=== PATIENT | female | born 1960 | race Caucasian/White ===

== ENCOUNTER 2016-10-18 08:41 | Emergency (ER) | payer MEDICARE, MEDICAID ==
[~2016-10-18 08:41] MED LIST: ANTIFUNGAL15 GM TOP; AYR SALINE NASA22 ML NAS; BENADRYL25 MG PO; BENTYL10 MG PO; CLARITIN10 MG PO; DULCOLAX10 MG RECTAL; EFFEXOR XR150 MG PO; FLEET ENEMA133 M1 RECTAL; GLUCAGEN1 MG/1 ML SUBCUT; IMODIUM2 MG PO; KLOR-CON M2020 MEQ PO; LANTUS100 UNIT/1 SUBCUT; LIORESAL10 MG PO; LORTAB 5-325 M1 EACH PO; MILK OF MAGNESI30 ML PO; MULTIVITAMINS1 EAC1 PO; PRILOSEC20 MG PO; TYLENOL325 MG PO; VITAMIN C500 M1 PO; VITAMIN D-32000 UNIT PO
== END 2016-10-18 12:35 | disposition short-term general hospital (02) ==
LOC: ER 08:41
DX: N39.0 Urinary tract infection, site not specified (principal); N13.2 Hydronephrosis with renal and ureteral calculous obstruction; E11.9 Type 2 diabetes mellitus without complications; Z87.442 Personal history of urinary calculi; Z86.73 Personal history of transient ischemic attack (TIA), and cerebral infarction without residual deficits; Z90.49 Acquired absence of other specified parts of digestive tract; Z88.0 Allergy status to penicillin
CPT/HCPCS: J2185; J2270; J2405

== ENCOUNTER 2016-11-11 17:13 | Emergency (ER) | payer MEDICARE, MEDICAID | END 2016-11-11 22:00 | disposition short-term general hospital (02) | LOC: ER 17:13 | DX: E86.0 Dehydration (principal); R41.0 Disorientation, unspecified; N28.9 Disorder of kidney and ureter, unspecified; I10 Essential (primary) hypertension; F32.9 Major depressive disorder, single episode, unspecified; E11.9 Type 2 diabetes mellitus without complications; I87.2 Venous insufficiency (chronic) (peripheral); Z85.51 Personal history of malignant neoplasm of bladder; F17.200 Nicotine dependence, unspecified, uncomplicated; Z86.73 Personal history of transient ischemic attack (TIA), and cerebral infarction without residual deficits; Z90.49 Acquired absence of other specified parts of digestive tract; Z98.890 Other specified postprocedural states ==

== ENCOUNTER 2016-11-19 16:09 | Emergency (ER) | payer MEDICARE, MEDICAID | END 2016-11-19 21:33 | disposition short-term general hospital (02) | LOC: ER 16:09 | DX: E86.0 Dehydration (principal); N39.0 Urinary tract infection, site not specified; I10 Essential (primary) hypertension; F32.9 Major depressive disorder, single episode, unspecified; E11.9 Type 2 diabetes mellitus without complications; Z86.73 Personal history of transient ischemic attack (TIA), and cerebral infarction without residual deficits; Z98.890 Other specified postprocedural states ==